=== PATIENT | male | born 1975 | race Caucasian/White ===

== ENCOUNTER 2017-03-15 21:55 | Inpatient (IN) | payer MEDICAID ==
[~2017-03-15] VITALS: Ht 165.1 cm; Wt 88.0 kg
[2017-03-15 21:55] VITALS: BP 178/123
--- NOTE | 2017-03-15 21:55 | NUR ---
BIBA TO ER BED 5
[2017-03-15] MEDS ORDERED: LORazepam 1 MG TAB PO ONE (22:00)
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
--- NOTE | 2017-03-15 22:24 | NUR ---
pt taken fot ct scan.
--- NOTE | 2017-03-15 22:59 | NUR ---
pt resting in bed, elevated bp, denies any chest pain. er md made aware.
[2017-03-15] MEDS ORDERED: NACL 0.9% 1,000 ML IV ONE (23:20)
[2017-03-15] MEDS ORDERED: LORazepam 2 MG/ML VIAL IVP ONE (23:25)
--- NOTE | 2017-03-15 23:48 | NUR ---
pt resting in bed, resident md evaluating pt aT BEDSIDE. VSS.
--- NOTE | 2017-03-16 00:33 | NUR ---
Patient will be admitted to care of DR DUPREE . Admited to TELEMETRY. Will go to room 106 X. Belongings list completed. Report to .MARISSA DUKES.
--- NOTE | 2017-03-16 00:40 | NUR ---
PT UNABLE TO PROVIDE URINE, ER MADE AWARE.
--- NOTE | 2017-03-16 00:45 | NUR ---
PT TRASFERED TO FLOOR BY CHARGE NURSE AND EMT VIA [facility].
[2017-03-16] MEDS ORDERED: LORazepam 1 MG TAB PO SCH (01:45)
[2017-03-16] MEDS ORDERED: DOCUSATE SODIUM 100 MG GELCAP PO PRN (01:55)
[2017-03-16] MEDS ORDERED: ACETAMINOPHEN 325 MG TAB PO PRN (01:55)
[2017-03-16] MEDS ORDERED: ONDANSETRON 4 MG/2 ML VIAL IM/IVP PRN (01:55)
[2017-03-16] MEDS ORDERED: MORPHINE SULFATE 2 MG/ML SYR IVP PRN (01:55)
[2017-03-16] MEDS ORDERED: HYDROcodone/APAP 7.5/325 MG 1 TAB PO PRN (01:55)
--- NOTE | 2017-03-16 02:00 | NUR ---
RECEIVED PT FROM ER.PLACED ON BED.PT IS VERY DROWSY AND CAN NOT ANSWER MY QUESTIONS.SL PATENT TRIED TO ORIENT HIM TO ROOM AND EXPLAIN CALL LIGHT BUT PT UNABLE TO COMPREHEND.ACCORDING TO ER REPORT PT IS BLIND ON RT.EYE AND LT LEG IS SHORTER THAN RT LEG,ALSO HAS WEAKNESS ON LT.SIDE.HAS LORETTA ON RT.SIDE OF FACE AND DISCOLORATION TO LT.THIGH.PADDED TIP RAILS.FALL PRECAUTION INITIATED.RESP.UNLABORED IN RA.NO S/S OF ANY DISTRESS NOTED.WILL CONTINUE MONITORING.
[2017-03-16] MEDS: NACL 0.9% 1,000 ML IV SCH ×3 (02:19→21:53)
[2017-03-16 02:22] VITALS: BP 139/82
[2017-03-16 04:00] VITALS: BP 140/78
--- NOTE | 2017-03-16 04:15 | NUR ---
PT IS SLEEPING.NO DISTRESS NOTED.HR IS SR.IVF IN PROGRESS.WILL CONTINUE MONITORING.
--- NOTE | 2017-03-16 06:49 | NUR ---
PT WOKE UP FOR SHORT PERIOD AND SLEPT AGAIN.CONDITION STABLE.NO SEIZURE SINCE ADMISSION.
--- NOTE | 2017-03-16 07:30 | NUR ---
RECEIVED REPORT FROM PM NURSE FOR CONTINUITY OF CARE. PT SLEEPING, EASILY AWAKENS. RESP EVEN AND UNLABORED. NO S/S OF DISTRESS. INITIAL ASSESSMENT IS DONE. IV INTACT, NO REDNESS OR SWELLING NOTED. SKIN IS WARM AND DRY, BIRTHMARK NOTED ON THE RIGHT FACE, LEFT THIGH DISCOLORATION NOTED. PT DENIES DISCOMFORT OR ANY FURTHER NEEDS AT THIS TIME. SAFETY MEASURES IN PLACED. SIDE RAILS UP, BED LOCKED ON LOW POSITION, CALL LIGHT WITHIN REACH. WILL CONTINUE TO MONITOR.
[2017-03-16 08:00] VITALS: BP 147/99
--- NOTE | 2017-03-16 08:00 | NUR ---
PT SLEEPING. NO S/S OF DISTRESS. SEIZURE PRECAUTION IN PLACED. WILL CONTINUE TO MONITOR.
[2017-03-16] MEDS ORDERED: LORazepam 2 MG/ML VIAL IVP PRN (08:30)
--- NOTE | 2017-03-16 09:00 | NUR ---
PT SLEEPING, EASILY AWAKENS. RESP EVEN AND UNLABORED. NO S/S OF DISTRESS. SAFETY MEASURES IN PLACED. WILL CONTINUE TO MONITOR.
[2017-03-16] MEDS: THIAMINE 100 MG TAB PO SCH (09:20)
[2017-03-16] MEDS: FOLIC ACID 1 MG TAB PO SCH (09:20)
[2017-03-16] MEDS: MULTIVITAMIN 1 TAB PO SCH (09:21)
[2017-03-16] MEDS ORDERED: LACTULOSE 20 GM/30 ML UDC PO SCH ×2 (09:44→21:00)
--- NOTE | 2017-03-16 11:30 | NUR ---
PT RESTING IN BED. RESP EVEN AND UNLABORED. NO S/S OF DISTRESS. SAFETY MEASURES IN PLACED. WILL CONTINUE TO MONITOR.
[2017-03-16] MEDS: LORazepam 1 MG TAB PO SCH ×2 (14:16→21:52)
[2017-03-16] MEDS: LACTULOSE 20 GM/30 ML UDC PO SCH ×2 (14:17→21:52)
[2017-03-16] MEDS ORDERED: PHENYTOIN 1,000 MG in NACL 0.9% 100 ML IV SCH (14:30)
--- NOTE | 2017-03-16 14:30 | NUR ---
PT SLEEPING, AWAKENS EASILY. RESP EVEN AND UNLABORED. NO S/S OF DISTRESS. SAFETY MEASURES IN PLACED. WILL CONTINUE TO MONITOR.
[2017-03-16 16:00] VITALS: BP 133/91
--- NOTE | 2017-03-16 16:25 | NUR ---
PT HAD A BOWEL MOVEMENT, BROWN, SOFT STOOL. STUDENT NURSE ASSISTS WITH FRITZ CARE AND LINEN CHANGED.
[2017-03-16] MEDS: PHENYTOIN 100 MG CAPER PO SCH (17:49)
--- NOTE | 2017-03-16 17:50 | NUR ---
PT SITTING IN BED, EATING DINNER. RESP EVEN AND UNLABORED. NO S/S OF DISTRESS. SAFETY MEASURES IN PLACED. WILL CONTINUE TO MONITOR.
--- NOTE | 2017-03-16 18:00 | NUR ---
PT SLEEPING, EASILY AWAKENS. NO SEIZURE NOTED. RESP EVEN AND UNLABORED. RESP EVEN AND UNLABORED. SEIZURE PRECAUTION IN PLACED. WILL CONTINUE TO MONITOR.
--- NOTE | 2017-03-16 19:40 | NUR ---
ENDORSED CARE TO PM NURSE FOR CONTINUITY OF CARE. PT IS STABLE.
--- NOTE | 2017-03-16 19:41 | NUR ---
PT SLEEPING COMFORTABLY, AROUSABLE TO NAME. PT DENIES CHEST PAIN, SOB OR S/S OF ACUTE DISTRESS. PT IS BLIND ON RIGHT EYE. BIRTHMARK NOTED ON RIGHT FACE, DISCOLORATION NOTED ON LEFT THIGH. IV ACCESS ASYMPTOMATIC, PATENT AND INTACT. IVF INFUSING WELL. DISCUSSED AND REVIEWED PLAN OF CARE WITH PT. PT STATED "OK." ALL NEEDS MET. SAFETY MEASURES ENSURED. CALL LIGHT WITHIN REACH. WILL CONTINUE TO MONITOR.
[2017-03-16 20:00] VITALS: BP 125/83
--- NOTE | 2017-03-16 21:52 | NUR ---
PT SLEEPING, AROUSABLE TO NAME. ADMINISTERED DUE MEDICATIONS WITH EDUCATION, PT STATED "OK." ALL NEEDS MET. IVF INFUSING WELL. SAFETY MEASURES ENSURED. CALL LIGHT WITHIN REACH. WILL CONTINUE TO MONITOR.
[2017-03-17] VITALS: BP 115/89
--- NOTE | 2017-03-17 00:15 | NUR ---
PT SLEEPING, AROUSABLE TO NAME. ALL NEEDS MET. IVF INFUSING WELL. SAFETY MEASURES ENSURED. CALL LIGHT WITHIN REACH. WILL CONTINUE TO MONITOR.
[2017-03-17] MEDS: LACTULOSE 20 GM/30 ML UDC PO SCH ×3 (04:32→21:00)
[2017-03-17] MEDS: LORazepam 1 MG TAB PO SCH ×3 (04:32→21:28)
[2017-03-17] MEDS: NACL 0.9% 1,000 ML IV SCH ×3 (04:33→18:00)
--- NOTE | 2017-03-17 07:29 | NUR ---
ENDORSED PLAN OF CARE TO AM NURSE. CONDITION STABLE.
[2017-03-17 08:00] VITALS: BP 114/87
--- NOTE | 2017-03-17 08:29 | NUR ---
RECEIVED REPORT FROM NIGHT NURSE, PT IS AAOX2, ON ROOM AIR, IV TO LEFT AC 20G INFUSING WELL, SKIN INTACT, RIGHT FACE BIRTHMARK, INITIAL ASSESSMENT COMPLETED, REVIEWED PLAN OF ACRE WITH PT, PT VERBALIZED UNDERSTANDING. ALL SAFETY PRECAUTIONS MET. CALL LIGHT WITHIN REACH. WILL CONTINUE TO MONITOR.
[2017-03-17] MEDS: MULTIVITAMIN 1 TAB PO SCH (10:02)
[2017-03-17] MEDS: ECOTRIN 81 MG TABEC PO SCH (10:02)
[2017-03-17] MEDS: THIAMINE 100 MG TAB PO SCH (10:02)
[2017-03-17] MEDS: ATORVASTATIN 20 MG TAB PO SCH (10:02)
[2017-03-17] MEDS: FOLIC ACID 1 MG TAB PO SCH (10:02)
--- NOTE | 2017-03-17 10:04 | NUR ---
DUE MEDICATIONS GIVEN, PT TOLERATED WELL. ALL NEEDS MET. WILL CONTINUE TO MONITOR.
--- NOTE | 2017-03-17 12:15 | NUR ---
03/17/17 RD INITIAL ASSESSMENT COMPLETED PLEASE REFER TO NUTRITION ASSESSMENT UNDER CARE ACTIVITY FOR ESTIMATED NUTRITIONAL NEEDS. 1. CONTINUE 60G CONSISTENT CARBOHYDRATE DIET 2. CONTINUE FOLIC ACID & THIAMINE SUPPLEMENTATION 3. PROVIDE NUTRITION THERAPY EDUCATION NEEDED 4. RD TO FOLLOW-UP 3-5 DAYS, MODERATE RISK CARL ASHLEY RD
--- NOTE | 2017-03-17 12:59 | NUR ---
MEDICATION GIVEN, FAMILY MEMBER AT BEDSIDE. ALL NEEDS MET. WILL CONTINUE TO MONITOR.
--- NOTE | 2017-03-17 14:21 | NUR ---
PT CURRENTLY SLEEPING, AWAKENS TO NAME, FAMILY AT BEDSIDE, WILL CONTINUE TO MONITOR.
[2017-03-17 16:00] VITALS: BP 131/90
[2017-03-17] MEDS: PHENYTOIN 100 MG CAPER PO SCH (16:40)
--- NOTE | 2017-03-17 16:41 | NUR ---
DUE MEDICATIONS GIVEN, PT TOLERATED WELL . WILL CONTINUE TO MONITOR.
--- NOTE | 2017-03-17 18:25 | NUR ---
PT IS AWAKE RESTING IN BED, FAMILY AT BEDSIDE. WILL CONTINUE TO MONITOR.
--- NOTE | 2017-03-17 19:29 | NUR ---
ENDORSED PLAN OF CARE TO NIGHT NURSE, PT IN STABLE CONDITION
--- NOTE | 2017-03-17 19:30 | NUR ---
RECD. RESTING IN BED, AWAKE, A/OX4, AMBULATE WITH ASSISTANCE. ON SE IV SALINE LOCK ACCIDENTALLY PULLED OUT. WILL INSERT A NEW IV LINE. ON SEIZURE PRECAUTION, SIDE RAILS WITH PADS, BED ON ALARM. PLAN OF CARE FOR THE SHIFT DISCUSSED, VERBALIZED UNDERSTANDING. INSTRUCTED TO USE CALL LIGHT TO CALL NURSE BEFORE GETTING OUT OF BED. VERBALIZED UNDERSTANDING. DENIES PAIN 0/10.
--- NOTE | 2017-03-17 20:00 | NUR ---
Patient's Plan of Care was discussed and reviewed with [employer] CAMERA OPERATOR: SUNNY TUCKER.
--- NOTE | 2017-03-17 21:28 | NUR ---
DUE PO MEDICATIONS GIVEN. REFUSED LACTULOSE, STATED THAT MAKES ME HAVE BM. EXPLAINED THAT IT IS NEEDED, AMMONIA LEVEL IS 23, STILL REFUSED.
[2017-03-18] VITALS: BP 132/88
--- NOTE | 2017-03-18 | NUR ---
SLEEPING COMFORTABLY IN BED.
--- NOTE | 2017-03-18 01:06 | NUR ---
STARTED NEW 22G IV ON THE RIGHT HAND.
[2017-03-18] MEDS: NACL 0.9% 1,000 ML IV SCH (03:53)
[2017-03-18] MEDS: LACTULOSE 20 GM/30 ML UDC PO SCH (05:00)
[2017-03-18] MEDS: LORazepam 1 MG TAB PO SCH (05:00)
--- NOTE | 2017-03-18 06:45 | NUR ---
ABLE TO SLEPT WELL. NO SEIZURE NOTED DURING SHIFT.
--- NOTE | 2017-03-18 07:05 | NUR ---
RECEIVED REPORT FROM NIGHT NURSE, PT IS AAOX2, ON ROOM AIR, IV TO RIGHT HAND 22G INFUSING WELL, SKIN INTACT, RIGHT FACE BIRTHMARK, INITIAL ASSESSMENT COMPLETED, REVIEWED PLAN OF ACRE WITH PT, PT VERBALIZED UNDERSTANDING. ALL SAFETY PRECAUTIONS MET. CALL LIGHT WITHIN REACH. WILL CONTINUE TO MONITOR.
--- NOTE | 2017-03-18 07:05 | NUR ---
CONDITION REMAIN STABLE. ENDORSED TO MARISSA CISNEROS FOR CONTINUITY OF CARE.
[2017-03-18 08:00] VITALS: BP 145/92
[2017-03-18] MEDS ORDERED: DILANTIN100 M1 PO (08:48)
--- NOTE | 2017-03-18 08:58 | NUR ---
DUE MEDICATIONS GIVEN, ALL NEEDS MET, DISCUSSED DISCHARGE PLAN WITH PT, PT VERBALIZED UNDERSTANDING.
[2017-03-18] MEDS: ECOTRIN 81 MG TABEC PO SCH (08:59)
[2017-03-18] MEDS: MULTIVITAMIN 1 TAB PO SCH (08:59)
[2017-03-18] MEDS: FOLIC ACID 1 MG TAB PO SCH (08:59)
[2017-03-18] MEDS: ATORVASTATIN 20 MG TAB PO SCH (08:59)
[2017-03-18] MEDS: THIAMINE 100 MG TAB PO SCH (08:59)
--- NOTE | 2017-03-18 10:31 | NUR ---
CONTACTED SILKE RASCON [phone] PT'S STEP MOM TO INFORMED OF PT'S DISCHARGE PLAN , SHE STATES THAT SHE WILL BE ABLE TO PICK PT UP AFTER 1200.
--- NOTE | 2017-03-18 12:45 | NUR ---
PT SIGNED ALL DISCHARGE PAPERWORK, DISCHARGE EDUCATION GIVEN, FOLLOW UP INFORMATION GIVEN, MEDICATION EDUCATION GIVEN, IV REMOVED TIP INTACT, ID BANDS REMOVED, ALL PERSONAL BELONGING WITH PT, PT'S STEP MOTHER IN TO MEMBER OF TECHNICAL STAFF PT.
--- NOTE | 2017-03-18 12:50 | NUR ---
PT WAS WHEELED OUT TO FRONT LOBBY IN STABLE CONDITION
== END 2017-03-18 12:50 | disposition home or self-care (01) | DRG 48 ==
LOC: MED 21:55 → MTU 03-16 00:01
PROVIDERS: ADMIT Family Medicine Sports Medicine; ATTEND Family Medicine Sports Medicine
DX: G90.9 Disorder of the autonomic nervous system, unspecified (principal); N17.0 Acute kidney failure with tubular necrosis; G40.89 Other seizures; Q85.8 Other phakomatoses, not elsewhere classified; E02 Subclinical iodine-deficiency hypothyroidism; H54.41 Blindness, right eye, normal vision left eye; E78.2 Mixed hyperlipidemia; J32.8 Other chronic sinusitis; Z79.899 Other long term (current) drug therapy; G81.94 Hemiplegia, unspecified affecting left nondominant side; E86.0 Dehydration

== ENCOUNTER 2021-03-24 22:16 | Emergency (ER) | payer SELFPAY ==
[~2021-03-24] VITALS: Ht 162.6 cm; Wt 84.4 kg
[2021-03-24 22:16] VITALS: BP 168/94
[~2021-03-24 22:16] MED LIST: PHEN100C4 PO
--- NOTE | 2021-03-24 22:16 | NUR ---
45/M [facility]. PT WAS REJECTED AT [place] DUE TO HAVING INCREASED HR. UPON [place]IGE HR 133. PT DENIES ANY PAIN OR DISCOMFORT AT THIS TIME. PT PRESENTS WITH BRUISING ON LEFT SIDE OF FACE. PMH: EPILEPSY NKDA
--- NOTE | 2021-03-25 00:28 | NUR ---
DR. MAYEN AT BEDSIDE EXAMINING PATIENT
[2021-03-25] MEDS ORDERED: NIFEdipine 30 MG TABER PO ONE (00:35)
[2021-03-25] MEDS ORDERED: levETIRAcetam 500 MG TAB PO ONE (00:35)
[2021-03-25 01:23] VITALS: BP 148/109
--- NOTE | 2021-03-25 01:24 | NUR ---
PATIENT [facility] [employer] DEPT. PATIENT EXAMINED BY DR. MAYEN. PATIENT MEDICALLY CLEARED AND RELEASED IN CUSTODY IN STABLE CONDITION. ORIGINAL PRE-BOOK FORM GIVEN TO OFFICER KOLE.
== END 2021-03-25 01:24 ==
LOC: MED 22:16
DX: I10 Essential (primary) hypertension (principal); R00.0 Tachycardia, unspecified; F15.90 Other stimulant use, unspecified, uncomplicated; F17.210 Nicotine dependence, cigarettes, uncomplicated; Z86.69 Personal history of other diseases of the nervous system and sense organs; Z79.899 Other long term (current) drug therapy
CPT/HCPCS: 99283